=== PATIENT | male | born 1995 | race American Indian/Alaskan Native ===

== ENCOUNTER 2016-08-22 22:15 | Emergency (ER) | payer SELFPAY ==
[2016-08-22 22:39] VITALS: BP 149/98
--- NOTE | 2016-08-23 02:43 | Emergency Department Report ---
Chief Complaint: Upper Respiratory Infection Stated Complaint: COUGH/BODY PAIN/L LEG PAIN Time Seen by Provider: 08/23/16 02:28 - HPI History of Present Illness: Patient presents requesting refills on promethazine DM which he takes for chronic cough and Percocet which he takes chronic left knee and ankle pain. States he is visiting from [place] and left all his medications (except his breathing meds) as his mom was rushing him to catch the bus. Patient has a history of asthma and states he's breathing treatment is helping. States he doesn't need refills on them at this time. Denies wheezing, SOB, chest pain or discomfort. Denies fever, chills, nausea, vomiting, abdomen flank pain, wheezing, SOB. - Exam Vital Signs: Vital Signs 08/22/16 22:37 Temperature 98.2 F Pulse Rate 101 H Respiratory 18 Rate Blood Pressure 149/98 O2 Sat by Pulse 96 Oximetry Physical Exam: General: Morbidly Obese. NAD. heart: RRR. Lungs: equal sounds b/l. Neuro: AAO x3. MSE screening note: Focused history and physical exam performed. Due to findings the following was ordered: ED Medical Decision Making - Medical Decision Making Patient instructed to go to [facility] for prescription refills as he is not having an emergent medical complaints. ED Disposition for MSE Disposition: MEDICAL SCREENING EXAM-LEFT Is pt being admited?: No Does the pt Need Aspirin: No Condition: Stable
== END 2016-08-23 02:35 | disposition left against medical advice (07) ==
LOC: ED 22:15
DX: R05 Cough (principal); M25.562 Pain in left knee; M25.572 Pain in left ankle and joints of left foot; G89.29 Other chronic pain; Z53.21 Procedure and treatment not carried out due to patient leaving prior to being seen by health care provider